=== PATIENT | male | born 1925 | race Caucasian/White ===

== ENCOUNTER → 2017-03-13 | Outpatient (CLI) | payer MEDICARE, BC ==
--- NOTE | 2017-03-13 14:20 | CT ---
EXAMINATION TYPE: CT chest wo con DATE OF EXAM: 03/13/2017 COMPARISON: CT chest September 03, 2014 HISTORY: Cough CT DLP: 189.50 mGycm. Automated Exposure Control for Dose Reduction was Utilized. TECHNIQUE: CT scan of the thorax is performed without IV contrast. FINDINGS: LUNGS: Calcified pleural plaques bilaterally are redemonstrated. There is stable 4 mm calcified nodul e or granuloma posteriorly in left upper lung on axial image 10. No suspicious greater than 5 mm nonc alcified parenchymal nodules or masses is present. No suspicious consolidation or groundglass opacity is seen. No pleural effusion or pneumothorax is noted bilaterally. MEDIASTINUM: Lack of IV contrast is noted to limit evaluation for mediastinal and especially hilar ad enopathy. There are no definitive greater than 1 cm hilar or mediastinal lymph nodes. No cardiomega ly or pericardial effusion is seen. Three-vessel coronary artery calcification and/or coronary stents are redemonstrated. Main pulmonary artery is not dilated, right and left pulmonary arteries are more prominent. There is mild to moderate calcified plaque in the aortic arch and descending aorta. OTHER: Small size hiatal hernia is redemonstrated. There are numerous simple appearing cysts scattere d throughout visualized portions of both kidneys. Osseous structures are demineralized. There is scol iosis centered at L1 level and the lumbar spine. There is multilevel spurring in the thoracolumbar sp ine noted. IMPRESSION: Calcified pleural plaques redemonstrated consistent with history of prior asbestos exposu re. No acute pulmonary process is seen. No significant change from prior study is noted.
== END | disposition home or self-care (01) ==
LOC: RADCTMAIN 13:35
PROVIDERS: ATTEND Internal Medicine Pulmonary Disease
DX: J92.9 Pleural plaque without asbestos (principal)
CPT/HCPCS: 71250